=== PATIENT | male | born 1955 | race Caucasian/White ===

== ENCOUNTER → 2016-09-23 | Outpatient (CLI) | payer BC | LOC: GMAJ 10:29 | PROVIDERS: ATTEND Family Medicine | DX: Z00.00 Encounter for general adult medical examination without abnormal findings (principal) ==

== ENCOUNTER → 2017-05-09 | Outpatient (CLI) | payer BC | END | disposition home or self-care (01) | LOC: GMAJ 16:27 | PROVIDERS: ATTEND Family Medicine | DX: R53.81 Other malaise (principal) ==

== ENCOUNTER → 2018-08-09 | Outpatient (CLI) | payer BC ==
--- NOTE | 2018-08-09 14:20 | CT ---
EXAM DESCRIPTION: Chest w/Contrast CLINICAL HISTORY: 63 years, Male, 786.2 cough COMPARISON: None TECHNIQUE: Thin-section noncontrast axial CT images are obtained according to our protocol. Reconstructed MPR images are created and reviewed as well. FINDINGS: Lungs: No consolidating pulmonary infiltrate or groundglass infiltrate. No worrisome pulmonary mass or nodule. Mediastinum: Lymph nodes are normal in size. Normal vascular contours. Heart size is normal with no pericardial effusion. Moderate coronary arterial calcification is present. Chest wall/axilla: No mass or adenopathy. Lower neck/supraclavicular: No mass or adenopathy. Upper abdomen: Few tiny cysts are seen in the liver. Small accessory splenule is incidentally noted. Otherwise unremarkable upper abdominal viscera. Coronal and sagittal reformatted images confirm the findings. Old mid thoracic compression is seen with 30% loss of height. IMPRESSION: No consolidating infiltrate. This exam was performed according to our departmental dose-optimization program, which includes automated exposure control, adjustment of the mA and/or kV according to patient size and/or use of iterative reconstruction technique. Total DLP equals 495.29 mGycm. Electronically signed by: Frederic Ahumada MD 08/09/2018 2:19 PM [employer]
== END ==
LOC: CT 12:26
PROVIDERS: ATTEND Family Medicine
DX: R05 Cough (principal)

== ENCOUNTER → 2019-11-02 | Outpatient (CLI) | payer BC | LOC: GMAJ 10:27 | PROVIDERS: ATTEND Family Medicine | DX: Z12.5 Encounter for screening for malignant neoplasm of prostate (principal); I10 Essential (primary) hypertension ==

== ENCOUNTER 2020-02-25 05:35 | Day surgery (SDC) | payer BC ==
[2020-02-25] MEDS ORDERED: PROPARACAINE 0.5% OPHTH SOL 15 ML BTTL ONE (06:34)
[2020-02-25] MEDS ORDERED: TROP1%/CYCLOPEN 1%/PHENYL 2.5% DROPS ONE (06:34)
[2020-02-25] MEDS ORDERED: MOXIFLOXACIN HCL (OPHTH) 1 DROP DROPS ONE (06:34)
[2020-02-25] MEDS ORDERED: MIDAZOLAM INJ 2 MG/2 ML VIAL ONE ×2 (07:52→08:05)
[2020-02-25] MEDS ORDERED: SODIUM CHLORIDE 0.9% (FLUSH) 10 ML SYG ONE (07:53)
[2020-02-25] MEDS ORDERED: PROPARACAINE 0.5% OPHTH SOL 15 ML BTTL LEFT_EYE ONE (08:02)
[2020-02-25] MEDS ORDERED: MOXIFLOXACIN HCL (OPHTH) 1 DROP DROPS LEFT_EYE ONE ×2 (08:09→08:34)
[2020-02-25] MEDS ORDERED: DEXAMETHASONE 0.1% OPHTH SOL 1 DROP LEFT_EYE ONE ×2 (08:09→08:35)
[2020-02-25] MEDS ORDERED: LIDOCAINE 1% MPF 2 ML VIAL INJ ONE ×2 (08:09→08:20)
[2020-02-25] MEDS ORDERED: TOBRAMYCIN SULF 0.3 % OPHT SOL 1 DROP LEFT_EYE ONE ×2 (08:10→08:35)
[2020-02-25] MEDS ORDERED: BRIMONIDINE 0.2% OPHTH DROPS LEFT_EYE ONE ×2 (08:10→08:35)
[2020-02-25] MEDS ORDERED: WATER FOR INJ 10 ML VIAL INJ ONE (08:15)
== END 2020-02-25 09:20 | disposition home or self-care (01) ==
LOC: AMB 05:35
PROVIDERS: ATTEND Ophthalmology
DX: H25.13 Age-related nuclear cataract, bilateral (principal); F17.220 Nicotine dependence, chewing tobacco, uncomplicated; I10 Essential (primary) hypertension; K21.9 Gastro-esophageal reflux disease without esophagitis; Z79.899 Other long term (current) drug therapy
CPT/HCPCS: 00142; 66984; 66999; A4216; J2250; V2788

== ENCOUNTER 2020-03-10 05:38 | Day surgery (SDC) | payer BC ==
[2020-03-10] MEDS ORDERED: PROPARACAINE 0.5% OPHTH SOL 15 ML BTTL ONE (06:31)
[2020-03-10] MEDS ORDERED: MOXIFLOXACIN HCL (OPHTH) 1 DROP DROPS ONE (06:31)
[2020-03-10] MEDS ORDERED: TROP1%/CYCLOPEN 1%/PHENYL 2.5% DROPS ONE (06:31)
[2020-03-10] MEDS ORDERED: MIDAZOLAM INJ 2 MG/2 ML VIAL ONE ×2 (08:03→08:23)
[2020-03-10] MEDS ORDERED: PROPARACAINE 0.5% OPHTH SOL 15 ML BTTL RIGHT_EYE ONE (08:17)
[2020-03-10] MEDS ORDERED: MOXIFLOXACIN HCL (OPHTH) 1 DROP DROPS RIGHT_EYE ONE ×2 (08:27→08:56)
[2020-03-10] MEDS ORDERED: LIDOCAINE 1% MPF 2 ML VIAL INJ ONE ×2 (08:27→08:36)
[2020-03-10] MEDS ORDERED: DEXAMETHASONE 0.1% OPHTH SOL 1 DROP RIGHT_EYE ONE ×2 (08:27→08:58)
[2020-03-10] MEDS ORDERED: TOBRAMYCIN SULF 0.3 % OPHT SOL 1 DROP RIGHT_EYE ONE ×2 (08:28→08:58)
[2020-03-10] MEDS ORDERED: BRIMONIDINE 0.2% OPHTH DROPS RIGHT_EYE ONE ×2 (08:28→08:58)
== END 2020-03-10 09:38 | disposition home or self-care (01) ==
LOC: AMB 05:38
PROVIDERS: ATTEND Ophthalmology
DX: H25.11 Age-related nuclear cataract, right eye (principal); H52.201 Unspecified astigmatism, right eye; I10 Essential (primary) hypertension; K21.9 Gastro-esophageal reflux disease without esophagitis; Z79.899 Other long term (current) drug therapy; Z87.891 Personal history of nicotine dependence
CPT/HCPCS: 66984; 66999; J2250; V2788

== ENCOUNTER → 2020-11-06 | Outpatient (CLI) | payer BC | LOC: GMAJ 13:21 | PROVIDERS: ATTEND Family Medicine | DX: Z12.5 Encounter for screening for malignant neoplasm of prostate (principal); I10 Essential (primary) hypertension ==